=== PATIENT | male | born 1990 | race African-American/Black ===

== ENCOUNTER 2022-07-27 21:40 | Emergency (ER) | payer OTHER, SELFPAY ==
--- NOTE | ~2022-07-27 | CT_ITS ---
EXAMINATION: CT HEAD WITHOUT CONTRAST CLINICAL INFORMATION: New onset seizure. COMPARISON: None available. TECHNIQUE: Contiguous axial imaging was performed from the skull base to vertex without intravenous administration of contrast. This CT examination was performed using dose optimization techniques as appropriate, variously including the following: *Automated exposure control. *Adjustment of mA and/or kV according to patient size (this includes techniques or standardized protocols for targeted exams where dose is matched to indication/reason for exam; i.e. extremities or head). *Use of iterative reconstruction technique. DLP: 672 mGy-cm FINDINGS: There is no evidence of acute intracranial hemorrhage or edematous territorial infarction. Duval-white matter differentiation is preserved. There is no abnormal attenuation within the brain parenchyma. The ventricles are normal in morphology and size. No evidence for obstructive hydrocephalus. Normal positioning of the cerebellar tonsils. The suprasellar cistern remains widely patent. No abnormal mass effect or midline shift. No extra-axial fluid collections. No acute soft tissue or osseous abnormalities. The mastoid air cells and visualized paranasal sinuses are clear. CT/CT head/brain wo IV con IMPRESSION: 1. No evidence of acute intracranial hemorrhage or edematous territorial infarction. 2. No demonstrated abnormal mass effect.
[2022-07-27 21:54] VITALS: BP 110/80; PULSE 63; O2SAT 97
[2022-07-27 22:10] VITALS: BP 108/49; PULSE 61; RESP 16; TEMP 36.7; O2SAT 99
[2022-07-27 22:13] VITALS: BP 112/56; RESP 18; O2SAT 97; BMI 21.2
--- OUTSIDE RECORDS SUMMARY | 2022-07-27 22:13 | XMS_ITS | Continuity of Care Document ---
:1990 Author Organization [facility] Address [address] [place] [address] Drive [address] [place] [address]- Care Team Providers Name Role Phone Not on Staff, PCP Primary Care Physician Unavailable En[place] [facility] [place] 09/12/20 - 09/19/[address] [place] [address]- Attending Physician: Huber Snowden Allergies, Adverse Reactions, Alerts Substance Reaction Severity Status Ritalin Active RisperDAL Active Medications diclofenac 1% topical gel = 4 Gm, Topically, 4 times a day, PRN Pain , Moderate, # 480 Gm, 0 Refills, Maintenance, 09/05/20 8:38:00 EDT, Gel, [facility]/pharmacy #[id number], Partial fill upon patient request if the prescription is for a schedule II opioid drug., 172.72, cm, 09/05/20 8:15:... Start Date: 09/05/20 Status: Orderedibuprofen 600 mg oral tablet 600 mg, 1, tablet, By Mouth, Every 6 hours, PRN, Refills 0, Maintenance, Pain , Mild, 09/01/20 12:25:00 EDT, Partial fill upon patient request if the prescription is for a schedule II opioid drug. Start Date: 09/01/20 Status: Orderedolanzapine 5 mg oral tablet 5 mg, 1, tablet, By Mouth, Daily at bedtime, # 30 tablet, Refills 0, Tot. Refills 0, Maintenance, 09/05/20 8:38:00 EDT, Route to Pharmacy Electronically, [facility]pharmacy #[id number], Partial fill upon patient request if the prescription is for a schedule II op... Start Date: 09/05/20 Status: Orderedondansetron 4 mg oral tablet 1 tablet = 4 mg, By Mouth, Every 8 hours, PRN Nausea, # 12 tablet, 0 Refills, Maintenance, 09/05/20 11:04:00 EDT, [facility]/pharmacy #[id number], Partial fill upon patient request if the prescription is for a schedule II opioid drug., 172.72, cm, 09/05/20 8:15:00... Start Date: 09/05/20 Stop Date: 09/08/20 Status: Orderedpantoprazole 40 mg oral delayed release tablet 1 tablet = 40 mg, By Mouth, Daily, # 30 tablet, 0 Refills, Maintenance, 09/05/20 8:38:00 EDT, EC Tablet, 172.72, cm, 09/05/20 8:15:00 EDT, Height, 58, kg, 09/01/20 17:25:00 EDT, Dry Weight Start Date: 09/05/20 Status: OrderedTylenol 325 mg oral tablet 650 mg, 2, tablet, By Mouth, Every 4 hours, PRN, Refills 0, Maintenance, Pain , Mild, 09/01/20 12:25:00 EDT, Partial fill upon patient request if the prescription is for a schedule II opioid drug. 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
--- OUTSIDE RECORDS SUMMARY | 2022-07-27 22:13 | XMS_ITS | Continuity of Care Document ---
:1990 Author Organization [facility] Address [address] [place] [address] Drive [address] [place] [address]- Care Team Providers Name Role Phone Not on Staff, PCP Primary Care Physician Unavailable Encounter [facility] [place] Date(s): 09/28/20 - 10/28/[address] [place] [address]- Attending Physician: Laure Medellin Admitting Physician: Laure Medellin Referring Physician: Laure Medellin Allergies, Adverse Reactions, Alerts Substance Reaction Severity Status Ritalin Active RisperDAL Active Medications diclofenac 1% topical gel = 4 Gm, Topically, 4 times a day, PRN Pain , Moderate, # 480 Gm, 0 Refills, Maintenance, 09/05/20 8:38:00 EDT, Gel, [facility]/pharmacy #[id number], Partial fill upon patient request if the [...] 09/05/20 8:38:00 EDT, Route to Pharmacy Electronically, [facility]/pharmacy #[id number], Partial fill upon patient request if the prescription is for a schedule II op... Start Date: 09/05/20 Status: Orderedondansetron 4 mg oral tablet 1 tablet = 4 mg, By Mouth, Every 8 hours, PRN Nausea, # 12 tablet, 0 Refills, Maintenance, 09/05/20 11:04:00 EDT, [facility]/pharmacy #[id number], Partial fill upon patient request if [...]
--- OUTSIDE RECORDS SUMMARY | 2022-07-27 22:13 | XMS_ITS | Continuity of Care Document ---
:1990 Author Organization [facility] Address [address] [place] [address]- Care Team Providers Name Role Phone Not on Staff, PCP Primary Care Physician Unavailable [place] [facility] [place]/22/20 - 09/01/[address] [address] Discharge Disposition: Transfer to [facility] Facility Attending Physician: Mustapha Vinson MD Admitting Physician: Mustapha Vinson MD Referring Physician: Not on Staff, Referring MD Allergies, Adverse Reactions, Alerts Substance Reaction Severity Status Ritalin Active RisperDAL Active Medications calcium carbonate 500 mg (200 mg elemental calcium) oral tablet, chewable 1,000 mg, 2, tablet, Chew, 3 times a day, PRN, Refills 0, Maintenance, Dyspepsia, 09/01/20 13:26:00 EDT, Partial fill upon patient request if the prescription is for a schedule II opioid drug. Start Date: 09/01/20 Status: OrderedColace sodium 100 mg oral capsule 200 mg, 2, capsule, By Mouth, 2 times a day, Refills 0, Maintenance, 09/01/20 12:26:00 EDT, Partial fill upon patient request if the prescription is for a schedule II opioid drug. Start Date: 09/01/20 Status: Orderedibuprofen 600 mg oral tablet 600 mg, 1, tablet, By Mouth, Every 6 hours, PRN, Refills 0, Maintenance, Pain , Mild, 09/01/20 12:25:00 EDT, Partial fill upon patient request if the prescription is for a schedule II opioid drug. Start Date: 09/01/20 Status: Orderedlidocaine 5% topical film Topically, Daily, 0 Refills, Maintenance, 09/01/20 13:26:00 EDT, Patch, Partial fill upon patient request if the prescription is for a schedule II opioid drug. Start Date: 09/01/20 Status: OrderedMiraLax Powder 1 pack/packet = 17 Gm, By Mouth, Daily, 0 Refills, Maintenance, 09/01/20 13:26:00 EDT, Powder, Partial fill upon patient request if the prescription is for a schedule II opioid drug. Start Date: 09/01/20 Status: Orderedolanzapine 5 mg oral tablet 5 mg, 1, tablet, By Mouth, Daily at bedtime, Refills 0, Maintenance, 09/01/20 11:04:00 EDT, Partial fill upon patient request if the prescription is for a schedule II opioid drug. Start Date: 09/01/20 Status: OrderedoxyCODONE 5 mg oral tablet 5 mg, Tablet, By Mouth, Every 4 hours, PRN for Pain , Moderate, Routine, 08/29/20 8:30:00 EDT Start Date: 08/29/20 Stop Date: 09/02/20 Status: DiscontinuedoxyCODONE 5 mg oral tablet 5 mg, 1, tablet, By Mouth, Every 4 hours, PRN, Refills 0, Tot. Refills 0, Maintenance, Pain , Moderate, 09/01/20 13:26:00 EDT, Partial fill upon patient request if the prescription is for a schedule IIopioid drug. Start Date: 09/01/20 Status: Orderedpantoprazole 40 mg oral delayed release tablet = 40 mg, By Mouth, Daily, 0 Refills, Maintenance, 09/01/20 11:04:00 EDT, EC Tablet Start Date: 09/01/20 Status: OrderedRemove Patch Start Date: 09/01/20 Status: OrderedSenna 8.6 mg oral tablet 8.6 mg, 1, tablet, By Mouth, Daily, Refills 0, Maintenance, 09/01/20 12:26:00 EDT, Tablet, Partial fill upon patient request if the prescription is for a schedule II opioid drug. Start Date: 09/01/20 Status: OrderedTylenol 325 mg oral tablet 650 mg, 2, tablet, By Mouth, Every 4 hours, PRN, Refills 0, Maintenance, Pain , Mild, 09/01/20 12:25:00 EDT, Partial fill upon patient request if the prescription is for a schedule II opioid drug. 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 Comparison films are from August 27, 2020. HISTORY: Postop study. FINDINGS: The cardiac silhouette is within normal limits for size. Patient is status post median sternotomy. No airspace infiltrate or pleural effusion is identified. A very tiny left apical pneumothorax is improved. Minimal degenerative changes are noted in the spine. IMPRESSION: Improved tiny left apical pneumothorax. Examination 96135. Thank you for allowing me to participate in the care of this patient. WSN: [id number] Ordering Physician: Jojo Vance Dictated By: Reilly Doyle MD Dictated Date/Time: 08/28/20 8:51 am Reviewed By: Reilly Doyle MD Signed By: Reilly Doyle MD Signed Date/Time: 08/28/20 8:51 am Transcribed By: MIKE Transcribed Date/Time: 08/28/20 8:49 am Exam Date Time Procedure Performing Provider Status 08/27/20 7:23 AM Chest 2 Views Frontal and Lat Krystle Cardona; Auth (Verified) Notes:(Chest 2 Views Frontal and Lat) Reason For Exam: PostopRESULT: Chest 2 Views Frontal and Lat Chest 2 Views Frontal and Lat Reason: Postop; Clinical Question(s): Follow-Up Abnormal Exam COMPARISON: 08/26/2020 FINDINGS: Stable small left apical pneumothorax. Small left pleural effusion is stable IMPRESSION: Stable small left apical pneumothorax. Stable small left pleural effusion WSN: [id number] Ordering Physician: Jojo Vance Dictated By: Jin Amato MD Dictated Date/Time: 08/27/20 9:27 am Reviewed By: Jin Amato MD Signed By: Jin Amato MD Signed Date/Time: 08/27/20 9:27 am Transcribed By: MIKE Transcribed Date/Time: 08/27/20 9:25 am Exam Date Time Procedure Performing Provider Status 08/26/20 4:21 PM Chest 2 Views Frontal and Lat Keshav Francisco; Negin vital (Verified) Notes:(Chest 2 Views Frontal and Lat) Reason For Exam: post CT pull; Please get chest xray done at 1600;Other:RESULT: Chest 2 Views Frontal and Lat PA and lateral chest dated August 26, 2020. Comparison films are from earlier in the day. HISTORY: Status post left chest tube removal. FINDINGS: The cardiac silhouette is within normal limits for size. There is a small left apical pneumothorax measuring up to 7 mm. There is no evidence of tension. No airspace infiltrate is noted. There is a small left pleural effusion.. There is a small crescentic focus of air under the right hemidiap hragm. This could represent a minimal amount of free intraperitoneal air. Patient had abdominal surgery on August 22, 2020. IMPRESSION: Small left apical pneumothorax following chest tube removal. No evidence of tension. Minimal amount of free intraperitoneal air. Examination 43745. Thank you for allowing me to participate in the care of this patient. WSN: [id number] Ordering Physician: Huber Cabrera Dictated By: Reilly Doyle MD Dictated Date/Time: 08/26/20 5:18 pm Reviewed By: Reilly Doyle MD Signed By: Reilly Doyle MD Signed Date/Time: 08/26/20 5:18 pm Transcribed By: MIKE Transcribed Date/Time: 08/26/20 5:15 pm Exam Date Time Procedure Performing Provider Status 08/26/20 7:31 AM Chest 2 Views Frontal and Lat Aaron Tan (Verified) Notes:(Chest 2 Views Frontal and Lat) Reason For Exam: Tube PlacementRESULT: Chest 2 Views Frontal and Lat Chest 2 Views Frontal and Lat Reason: Tube Placement; Clinical Question(s): Tube Placement COMPARISON: 08/25/2020 FINDINGS: Trace amount of right subdiaphragmatic gas has decreased slightly. Left thoracostomy tube is stable. No evidence of pneumothorax. Mild left basilar groundglass consistent with small left pleural effusion. IMPRESSION: Stable left thoracostomy tube. No evidence of pneumothorax. Small, stable left pleural effusion. Right subdiaphragmatic gas has decreased slightly. WSN: [id number] Ordering Physician: Sandy Villegas Dictated By: Jin Amato MD Dictated Date/Time: 08/26/20 4:14 pm Reviewed By: Jin Amato MD Signed By: Jin Amato MD Signed Date/Time: 08/26/20 4:14 pm Transcribed By: MIKE Transcribed Date/Time: 08/26/20 4:12 pm Exam Date Time Procedure Performing Provider Status 08/25/20 6:05 AM Chest 2 Views Frontal and Lat Robert , Lyudmila; Au th (Verified) Notes:(Chest 2 Views Frontal and Lat) Reason For Exam: Tube PlacementRESULT: Chest 2 Views Frontal and Lat Chest 2 Views Frontal and Lat Reason: Tube Placement; Clinical Question(s): Tube Placement COMPARISON: Multiple recent prior examinations most recently 08/24/2020. FINDINGS: LINES AND TUBES: Left-sided chest tube remains in place. LUNGS AND PLEURA: Clear lungs. Normal pulmonary vascularity. Trace left effusion. No pneumothorax. HEART, MEDIASTINUM AND STACIE: Heart is normal in size. Normal upper mediastinal and hilar contour. BONES AND SOFT TISSUES: Trace amount of air under the right hemidiaphragm is a new finding. Multiple intra-abdominal air-filled bowel loops are increasing in number. Postsurgical changes again noted. IMPRESSION: Trace amount of air under the right hemidiaphragm, clinical correlation for pneumoperitoneum. This could also be within a bowel loop interposed between the liver and anterior abdominal wall, however sheila new finding compared to previous exams. A Lolita message has been communicated via the [facility] system on 08/25/2020 11:10 AM, Message ID [id number]. WSN: [id number] Ordering Physician: Radames Francois Dictated By: Naun Jose MD Dictated Date/Time: 08/25/20 11:10 a Reviewed By: Naun Jose MD Signed By: Naun Jose MD Signed Date/Time: 08/25/20 11:10 am Transcribed By: MIKE Transcribed Date/Time: 08/25/20 11:02 am Exam Date Time Procedure Performing Provider Status 08/24/20 12:36 PM Chest Portable Dana Lopez (Verif ied) Notes:(Chest Portable) Reason For Exam: S/p mediastinal tube removal;Tube PlacementRESULT: Chest Portable Chest Portable INDICATION: Status post mediastinal drain removal. COMPARISON: 08/24/2020 at 5:56 AM. FINDINGS: LINES AND TUBES: Unchanged apically directed left thoracostomy tube. Mediastinal drain has been removed. LUNGS AND PLEURA: Clear lungs. Normal pulmonary vascularity. No pleural effusion. No pneumothorax. HEART, MEDIASTINUM AND STACIE: Heart is normal in size. Unchanged trace pneumomediastinum. BONES AND SOFT TISSUES: Status post median sternotomy, wires intact. IMPRESSION: Status post mediastinal drain removal, otherwise no significant change. I have personally reviewed the images and I agree with this report. WSN: [id number] Ordering Physician: Kingsley Irving Dictated By: Yash[Radiology] Connie GUEVARA Dictated Date/Time: 08/24/20 4:10 pm Reviewed By: Jeramie Askew MD Signed By: Jeramie Askew MD Signed Date/Time: 08/24/20 4:15 pm Transcribed By: MIKE Transcribed Date/Time: 08/24/20 2:10 pm Exam Date Time Procedure Performing Provider Status 08/24/20 6:31 AM Chest Portable Delaney Rubin (Verified) Notes:(Chest Portable) Reason For Exam: Tube PlacementRESULT: Chest Portable AP semiupright portable chest dated August 24, 2020 at 0556 hours. Comparison films are from AugustAugust 22, 2020. HISTORY: Follow-up pneumothorax. FINDINGS: The cardiac silhouette is within normal limits for size. Since the previous study, an endotracheal tube and nasogastric tube have been removed. 2 chest tubes remain in place on the left, unchanged. No pneumothorax is seen. No airspace infiltrate or pleural effusion is identified. Patient is status post median sternotomy. IMPRESSION: Status post removal of endotracheal tube and nasogastric tube. No evidence of acute pulmonary disease. Examination [id number]. Thank you for allowing me to participate in the care of this patient. WSN: [id number] Ordering Physician: Zeyad Garcias Dictated By: Reilly Doyle MD Dictated Date/Time: 08/24/20 10:52 a Reviewed By: Reilly Doyle MD Signed By: Reilly Doyle MD Signed Date/Time: 08/24/20 10:52 am Transcribed By: MIKE Transcribed Date/Time: 08/24/20 10:51 am Exam Date Time Procedure Performing Provider Status 08/23/20 6:23 AM Chest Portable Stella Vaughan; Torrie (Verified) Notes:(Chest Portable) Reason For Exam: chest tubes, ett;Tube PlacementRESULT: Chest Portable Chest Portable Reason: Tube Placement COMPARISON: 08/22/2020 FINDINGS: LINES AND TUBES: Endotracheal tube tip terminating in 8.8 cm above the jojo. Enteric tube terminating outside of the field of view but overlying the left upper quadrant. Unchanged mediastinal and left apical chest tube in place LUNGS AND PLEURA: Clear lungs. Normal pulmonary vascularity. No pleural effusion. No pneumothorax. HEART, MEDIASTINUM AND STACIE: Heart is normal in size. Normal upper mediastinal and hilar contour. BONES AND SOFT TISSUES: No acute abnormality. IMPRESSION: 1. Support lines in place as detailed above. 2. No acute cardiopulmonary abnormality. I have personally reviewed the images and I agree with this report. WSN: [id number] Ordering Physician: Zeyad Garcias Dictated By: Teo Owens DO Dictated Date/Time: 08/23/20 11:55 a Reviewed By: Astrid Mcgregor MD, V Signed By: Astrid Mcgregor MD, V Signed Date/Time: 08/23/20 12:00 pm Transcribed By: MIKE Transcribed Date/Time: 08/23/20 10:56 am Exam Date Time Procedure Performing Provider Status 08/22/20 7:42 PM Chest Portable Madonna Marks; Torrie (Verifie d) Notes:(Chest Portable) Reason For Exam: Other:RESULT: Chest Portable Chest Portable Reason: Other:; Special Instructions: Questioning bleeding COMPARISON: 08/22/2020 FINDINGS: LINES AND TUBES: Endotracheal tube remains in a high position, terminating approximately 8.2 cm above the jojo above the thoracic inlet. Nasogastric tube terminates in the stomach. A mediastinal and left apical chest tube are present. LUNGS AND PLEURA: There are low lung volumes. No pleural effusion. No pneumothorax. HEART, MEDIASTINUM AND STACIE: Heart is normal in size. Normal upper mediastinal and hilar contour. BONES AND SOFT TISSUES: No acute abnormality. IMPRESSION: Endotracheal tube terminates above the thoracic inlet. The tube could be advanced by 4 cm to terminate in the mid trachea. Decreased lung volumes. No evidence for hemothorax or mediastinal hematoma. WSN: [id number] Ordering Physician: Hiwot Owen Dictated By: Cate Sparks MD Dictated Date/Time: 08/22/20 7:45 pm Reviewed By: Cate Sparks MD Signed By: Cate Sparsk MD Signed Date/Time: 08/22/20 7:45 pm Transcribed By: MIKE Transcribed Date/Time: 08/22/20 7:43 pm Exam Date Time Procedure Performing Provider Status 08/22/20 5:58 PM Chest Portable Anay Corbett; Torrie (Verified ) Notes:(Chest Portable) Reason For Exam: Tube PlacementRESULT: Chest Portable Chest Portable Reason: Tube Placement COMPARISON: 08/22/2020 4:15 PM FINDINGS: LINES AND TUBES: Endotracheal tube terminates in the upper trachea, above the thoracic inlet, 8.2 cm above jojo. A left-sided chest tube is present, as well as a mediastinal chest tube. Nasogastric tube terminates inthe stomach. LUNGS AND PLEURA: Clear lungs. Normal pulmonary vascularity. No pleural effusion. No pneumothorax. HEART, MEDIASTINUM AND STACIE: Heart is normal in size. Pneumomediastinum is present. BONES AND SOFT TISSUES: No acute abnormality. IMPRESSION: Endotracheal tube terminates above the thoracic inlet, 8.2 cm above jojo. Recommend advancing by 4-5 cm A Lolita message has been communicated via the [facility] system on 08/22/2020 6:01 PM, Message ID [id number]. WSN: [id number] Ordering Physician: Alejo Hernández Dictated By: Cate Sparks MD Dictated Date/Time: 08/22/20 6:01 pm Reviewed By: Cate Sparks MD Signed By: Cate Sparks MD Signed Date/Time: 08/22/20 6:01 pm Transcribed By: MIKE Transcribed Date/Time: 08/22/20 5:59 pm Vital Signs Most recent to oldest 1 2 3 4 [Reference Range]: Height 175 cm 175 cm 175 cm (09/01/20 2:16 PM) (09/01/20 12:26 PM) (09/01/20 12:25 PM ) Weight 64.0 kg 62.9 kg 62.9 kg (08/25/20 2:22 PM) (08/22/20 5:00 PM) (08/22/20 5:00 PM) Oxygen Saturation 100 % 100 % 100 % [94-100 %] (09/01/20:26 PM) (09/01/20 12:25 PM) (09/01/20 6:56 AM ) Pulse Rate [55-90 bpm] 81 bpm 71 bpm 57 bpm (09/01/20:16 PM) (09/01/20: PM) (09/01/20 12: PM ) Body Mass Index 20.54 [18.5-24.99] (08/22/20 5:00 PM) Blood Pressure 111/64 mm Hg 98/56 mm Hg 100/60 mm Hg [90-138/55-84 mm Hg] (09/01/20 2:16 PM) (09/01/20 12:26 PM) (09/01/20 12:25 PM) Respiratory Rate [16-30 18 br/min 18 br/min 18 br/min 18 b r/min br/min] (09/01/20 2:14 PM) (09/01/20 12:25 PM) (09/01/20 8:35 AM) (09/01/20 8:35 AM) Temperature [96.8-100.4 98.3 DegF 98.2 DegF 98.8 DegF DegF] (09/01/20 6:56 AM) (09/01/20 2:35 AM) (08/31/20 6:55 PM) Liters per Minute 2 L/min 4 L/min (08/23/20 2:00 PM) (08/23/20 11:00 AM) Mode of Delivery Room air Room air Room air (Oxygen) (09/01/20 12:26 PM) (09/01/20 12:25 PM) (09/01/20 6:56 AM ) Blood pressure sites Arm, left Arm, left Arm, left (09/01/20 2:16 PM) (09/01/20 12:26 PM) (09/01/20 12:25 PM ) Temperature Route Oral Oral Oral (09/01/20 6:56 AM) (09/01/20 2:35 AM) (08/31/20 6:55 PM) Dry Weight 62.9 kg (08/22/20 5:00 PM) Weight Obtained Via Bed scale Bed scale (08/22/20 5:00 PM) (08/22/20 5:00 PM) Dry Weight Obtained Via Bed scale (08/22/20 5:00 PM)
--- OUTSIDE RECORDS SUMMARY | 2022-07-27 22:13 | XMS_ITS | Continuity of Care Document ---
:1990 Author Organization [facility] Address [address] [place] [address] Drive [address] [place] [address]- Care Team Providers Name Role Phone Not on Staff, PCP Primary Care Physician Unavailable Encounter [facility] [place] Date(s): 09/12/20 - 10/28/[address] [place] [address]- Attending Physician: Jin Beal Allergies, Adverse Reactions, Alerts Substance Reaction Severity Status Ritalin Active RisperDAL Active Medications diclofenac 1% topical gel = 4 Gm, Topically, 4 times a day, PRN Pain , Moderate, # 480 Gm, 0 Refills, Maintenance, 09/05/20 8:38:00 EDT, Gel, [facility]/pharmacy #[id number], Partial fill upon patient request if [...] 09/05/20 8:38:00 EDT, Route to Pharmacy Electronically, [facility]/pharmacy #[id number], Partial fill upon patient request if the prescription is for a schedule II op... Start Date: 09/05/20 Status: Orderedondansetron 4 mg oral tablet 1 tablet = 4 mg, By Mouth, Every 8 hours, PRN Nausea, # 12 tablet, 0 Refills, Maintenance, 09/05/20 11:04:00 EDT, [facility]/pharmacy #[id number], Partial fill upon patient request if [...]
[2022-07-27 22:48] LABS: Glucose, Whole Blood 92 mg/dL (60-115)
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
[2022-07-27 23:41] LABS: MANUAL DIFF FLAG NO
[2022-07-27 23:42] LABS: Basophils Absolute Auto 0.1 X10*3/uL (0.0-0.2); Eosinophils Absolute Auto 0.2 X10*3/uL (0.0-0.4); Eosinophils Percent Auto 2.7 % (0-4); Hematocrit 40.4 % (42.0-52.0); Hemoglobin 13.4 g/dl (14.0-18.0); Imm Gran Abs Auto 0.02 X10*3/uL (0.00-0.03); Imm Gran Pct Auto 0.3 % (0.0-0.4); Lymphocytes Absolute Auto 3.3 X10*3/uL (1.2-4.9); Lymphocytes Percent Auto 47.7 % (20-40); Mean Corpuscular HGB Conc 33.2 g/dl (31.0-36.0); Mean Corpuscular Hemoglobin 30.7 pg (27.0-33.0); Mean Corpuscular Volume 92.7 fL (80.0-98.0); Mean Platelet Volume 10.5 fL (9.4-12.4); Monocytes Absolute Auto 0.6 X10*3/uL (0.1-1.2); Monocytes Percent Auto 8.4 % (2-11); Neutrophils Absolute Auto 2.8 x10*3/uL (2.0-8.3); Neutrophils Percent Auto 39.9 % (45-73); Platelet Count 193 X10*3/uL (160-400); Red Blood Count 4.36 X10*6/uL (4.60-5.80); Red Cell Distribution Width 13.3 % (11.0-16.0)
[2022-07-27 23:55] VITALS: BP 124/64; PULSE 61; RESP 16; TEMP 36.9; O2SAT 98
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
[2022-07-27 23:58] LABS: Alanine Aminotransferase 16 U/L (0-40); Albumin Level 3.7 g/dL (3.5-5.0); Alkaline Phosphatase 71 U/L (39-117); Anion Gap 11 (12-20); Aspartate Amino Transferase 19 U/L (5-37); Bilirubin Total 0.2 mg/dL (0.0-1.0); Blood Urea Nitrogen 15 mg/dL (9-16); Calcium 8.6 mg/dL (8.4-10.2); Carbon Dioxide 26 mmol/L (22-29); Chloride 108 mmol/L (96-108); Creatinine Clr Calc Pharmacy 114.7; Estimated Glomerular Filt Rate > 60; Glucose Random 87 mg/dL (60-115); Potassium 4.3 mmol/L (3.3-5.1); Sodium 141 mmol/L (135-145); Total Protein 5.8 g/dL (6.5-8.0)
--- NOTE | 2022-07-28 00:52 | PC.NURSE ---
Called Maru Kumar x2 at phone goes straight to voice message after three rings RN unable to give nurse to nurse report at this time.
--- NOTE | 2022-07-28 01:19 | PC.NURSE ---
Pt declined nausea med
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
--- NOTE | 2022-07-28 02:24 | PC.NURSE ---
difficulty contacting [facility], they did call back and report was given to Chelly by Yuli bunch.
== END 2022-07-28 01:55 ==
PROVIDERS: Emergency Provider Internal Medicine
DX: R56.9 Unspecified convulsions (principal); R11.2 Nausea with vomiting, unspecified; F19.10 Other psychoactive substance abuse, uncomplicated
CPT/HCPCS: 36415; 70450; 80053; 82947; 85025; 99284; 99285

== ENCOUNTER 2022-10-30 20:57 | Emergency (ER) | payer MEDICAID, SELFPAY ==
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
--- NOTE | ~2022-10-30 | XR_ITS ---
EXAMINATION: XR HAND, RIGHT CLINICAL INFORMATION: Thank you deformity COMPARISON: None available. TECHNIQUE: PA, lateral, and oblique views of the right hand. FINDINGS: There is no visible acute fracture, dislocation or subluxation. The joint spaces are maintained normal. The soft tissues are normal. XR/XR hand RT min 3V IMPRESSION: Unremarkable right hand exam.
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
[2022-10-30 21:02] VITALS: BMI 20.3
[2022-10-30 21:10] VITALS: BP 119/70; PULSE 80; RESP 20; TEMP 36.8; O2SAT 98; BMI 19.2
--- NOTE | 2022-10-30 21:19 | PC.NURSE ---
pt is non compliant with mental health meds. drug use mom thinks it is cocaine. per mom approx 2 weeks ago had fentanyl. in his system.
--- NOTE | 2022-10-30 21:37 | PC.NURSE ---
pt has a blank stare and is wandering in the ed trying to go home. pt appears to be under the influence of pcp. dr ye at bedside
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
[2022-10-30] MEDS: OLANZapine ODT 10 MG TAB.RAPDIS TRANSLINGU (21:41)
[2022-10-30 23:03] VITALS: BP 108/61; PULSE 64; RESP 17; TEMP 36.6; O2SAT 97
--- NOTE | 2022-10-30 23:17 | MHC.EDTECH ---
Patient vitals are stable ED Rounds are done Unable to provide a urine sample will continue to monitor
[2022-10-31 06:11] VITALS: BP 132/74; PULSE 79; RESP 16; O2SAT 98
--- NOTE | 2022-10-31 07:15 | PC.NURSE ---
assumed care of this pt at 0700. pt sleeping on stretcher in no apparent distress. rr even/unlabored. wctm
[2022-10-31 09:03] LABS: MANUAL DIFF FLAG NO
[2022-10-31 09:13] LABS: Basophils Percent Auto 0.6 % (0-2); Eosinophils Absolute Auto 0.1 X10*3/uL (0.0-0.4); Eosinophils Percent Auto 1.5 % (0-4); Hematocrit 42.9 % (42.0-52.0); Hemoglobin 14.1 g/dl (14.0-18.0); Imm Gran Abs Auto 0.02 X10*3/uL (0.00-0.03); Imm Gran Pct Auto 0.3 % (0.0-0.4); Lymphocytes Absolute Auto 2.4 X10*3/uL (1.2-4.9); Lymphocytes Percent Auto 32.6 % (20-40); Mean Corpuscular HGB Conc 32.9 g/dl (31.0-36.0); Mean Corpuscular Hemoglobin 30.1 pg (27.0-33.0); Mean Corpuscular Volume 91.7 fL (80.0-98.0); Mean Platelet Volume 10.8 fL (9.4-12.4); Monocytes Absolute Auto 0.6 X10*3/uL (0.1-1.2); Monocytes Percent Auto 8.5 % (2-11); Neutrophils Absolute Auto 4.1 x10*3/uL (2.0-8.3); Neutrophils Percent Auto 56.5 % (45-73); Platelet Count 232 X10*3/uL (160-400); Red Blood Count 4.68 X10*6/uL (4.60-5.80); Red Cell Distribution Width 14.9 % (11.0-16.0); White Blood Count 7.3 X10*3/uL (4.8-10.8)
[2022-10-31 09:26] LABS: COVID-19 Test Negative (Negative); IDNOW Serial# BCCEAD1C
[2022-10-31 09:33] LABS: Alanine Aminotransferase 13 U/L (0-40); Albumin Level 3.8 g/dL (3.5-5.0); Alkaline Phosphatase 66 U/L (39-117); Anion Gap 10 (12-20); Aspartate Amino Transferase 21 U/L (5-37); Bilirubin Direct 0.2 mg/dL (0.0-0.5); Bilirubin Total 0.9 mg/dL (0.0-1.0); Blood Urea Nitrogen 12 mg/dL (9-16); Calcium 9.2 mg/dL (8.4-10.2); Carbon Dioxide 27 mmol/L (22-29); Chloride 108 mmol/L (96-108); Creatinine Clr Calc Pharmacy 103.3; Estimated Glomerular Filt Rate > 60; Ethanol < 10 mg/dL; Glucose Random 87 mg/dL (60-115); Magnesium 1.9 mg/dL (1.6-2.6); Potassium 4.1 mmol/L (3.3-5.1); Sodium 141 mmol/L (135-145); Total Protein 6.4 g/dL (6.5-8.0)
--- NOTE | 2022-10-31 12:28 | PC.NURSE ---
pt woke up briefly. ED techs were able to draw labs off pt. awaiting urine sample. pt sleeping/lethargic. tried to wake pt up and was drowsy/fell back asleep mid sentence. pt sts wondering why he is still here and 5/10 pain in his face. currently sleeping. rr even/unlabored. wctm
[2022-10-31 14:47] LABS: Amphetamine Screen Urine Not Detected (Not Detect); Barbiturates, Urine Not Detected (Not Detect); Benzodiazepines Screen Urine Not Detected (Not Detect); Cannabinoid Screen Urine POSITIVE (Not Detect); Cocaine Screen Urine POSITIVE (Not Detect); Fentanyl, urine POSITIVE (Not Detect); Opiate Screen Urine Not Detected (Not Detect); Phencyclidine Screen Urine Not Detected (Not Detect)
--- NOTE | 2022-10-31 14:50 | PC.NURSE ---
pt woke up, asking for food. given saltines and gingerale. given portable phone for phone calls. this RN, called care team to let them know [facility]H is finally awake and can be evaluated miguel. was told that utox needs to be done first. urine collected, awaiting results
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
--- NOTE | 2022-10-31 16:15 | PC.NURSE ---
care team at bedside. pt sleeping and hard to arouse/keep awake. this rn helped Khushbu pull answers out of pt. pt was mumbling and giving head nods as answers. care team left bedside and pt became agitated because care team had other pt's to see and couldn't spend their whole time trying to guess what the pt was saying since he could not keep eyes open or stay awake during evaluation. pt started yelling in the ER that he hasn't received any food or pain medicine since he's been here. pt was given multiple sandwiches, crackers, juices, and gingerales. pt was then sleeping if not eating, showing no signs of pain or distress. security tried to deescalate pt. pt yelling profanities, upsetting other pts. pt eloped. no indication of section.
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
== END 2022-11-01 16:33 | disposition left against medical advice (07) ==
PROVIDERS: Physician Assistant; Emergency Provider Internal Medicine
DX: S02.2XXA Fracture of nasal bones, initial encounter for closed fracture (principal); S01.511A Laceration without foreign body of lip, initial encounter; Y04.2XXA Assault by strike against or bumped into by another person, initial encounter; F20.9 Schizophrenia, unspecified; F41.9 Anxiety disorder, unspecified; F19.10 Other psychoactive substance abuse, uncomplicated; Y93.01 Activity, walking, marching and hiking; Y92.414 Local residential or business street as the place of occurrence of the external cause; Y99.9 Unspecified external cause status; Z79.899 Other long term (current) drug therapy
CPT/HCPCS: 70450; 70486; 73130; 80048; 80076; 80307; 83735; 85025; 87635; 99284

== ENCOUNTER 2022-10-31 16:52 | Emergency (ER) | payer MEDICAID, SELFPAY ==
[2022-10-31 17:00] VITALS: BP 133/67; PULSE 78; RESP 18; TEMP 36.8; O2SAT 97; BMI 21.3
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
== END 2022-10-31 18:07 | disposition left against medical advice (07) ==
PROVIDERS: Emergency Provider Emergency Medicine
DX: F19.10 Other psychoactive substance abuse, uncomplicated (principal); F20.9 Schizophrenia, unspecified; Z79.899 Other long term (current) drug therapy
CPT/HCPCS: 99282; 99283

== ENCOUNTER 2023-01-10 08:30 | Emergency (ER) | payer MEDICAID, SELFPAY ==
--- NOTE | ~2023-01-10 | XR_ITS ---
EXAMINATION: XR HAND, LEFT CLINICAL INFORMATION: Acute pain in left hand COMPARISON: None available. TECHNIQUE: PA, lateral, and oblique views of the left hand. FINDINGS: The bones and soft tissues are normal. No fracture. Alignment is anatomic. Joint spaces are maintained. No erosions or soft tissue calcifications. XR/XR hand LT min 3V IMPRESSION: Normal left hand.
[2023-01-10 08:41] VITALS: BP 116/65; PULSE 73; RESP 16; TEMP 36.8; O2SAT 96; BMI 24.8
--- NOTE | 2023-01-10 08:51 | ECG_ITS ---
Test Reason : chest pain Blood Pressure : / mmHG Vent. Rate : 069 BPM Atrial Rate : 069 BPM P-R Int : 182 ms QRS Dur : 084 ms QT Int : 360 ms P-R-T Axes : 041 037 017 degrees QTc Int : 385 ms Normal sinus rhythm Normal ECG No previous ECGs available Referred By: Devin Box Electronically Signed By:RUBEN CHUN
[2023-01-10 08:55] VITALS: BP 116/65; PULSE 73; RESP 16; TEMP 36.8; O2SAT 96
[2023-01-10] MEDS: Ondansetron ODT 4 MG TAB.RAPDIS TRANSLINGU (09:02)
[2023-01-10] MEDS: Acetaminophen 325 MG TABLET 975 MG PO (09:02)
--- NOTE | 2023-01-10 09:04 | PC.NURSE ---
medication administered per provider order. pt requesting higher dose of hydroxyzine d/t him verbalizing that he takes 75mg of hydroxyzine PRN at home and doesn't think that 25mg will help/ will notify provider. tech bedside performing EKG.
[2023-01-10] MEDS: hydrOXYzine HCL 25 MG TABLET PO (09:12)
[2023-01-10] MEDS: hydrOXYzine HCL 50 MG TABLET PO (09:12)
--- NOTE | 2023-01-10 09:13 | PC.NURSE ---
pt requested higher dose of hydroxyzine. provider notified. provider instructed for me to increase dose as a verbal order. 50mg of hydroxyzine added to the 25mg to equal 75mg. 75mg of hydroxyzine administered to pt. lights dimmed. call stringer placed within reach.
--- NOTE | 2023-01-10 09:34 | ED.GENADULT ---
HPI - General Adult General Chief complaint: Anxiety Stated complaint: hand fracture ? vomiting Time Seen by Provider: 01/10/23 08:39 Source: patient Mode of arrival: ambulatory Limitations: no limitations History of Present Illness HPI narrative: 32-year-old male presents with left hand pain, anxiety, chest pain. Symptoms started yesterday when he had his hand crushed at work moving something. Patient has moderate pain. Worse with palpation and movement. The pain radiates distally to his left ulnar finger area. He has no numbness or tingling. Additionally, patient feels like he is having a panic attack. Symptoms include chest pain and palpitations. This is similar to his previous panic attacks. There is no pre treatment. Patient describes his anxiety as severe. There is no clear relieving or exacerbating features. He denies any shortness of breath, nausea vomiting. Related Data Previous Rx's Medication Instructions Recorded ondansetron 4 mg disintegrating 4 mg PO Q8H PRN nausea and 01/10/23 tablet vomiting #10 tabs Allergies Allergy/AdvReac Type Severity Reaction Status Date / Time methylphenidate AdvReac Mild Vomiting Verified 07/27/22 23:17 risperidone AdvReac Mild Unknown Verified 07/27/22 23:17 Review of Systems Review of Systems: CONSTITUTIONAL: Denies weight loss, fever and chills. HEENT: Denies changes in vision and hearing. RESPIRATORY: Denies SOB and cough. CV: + palpitations no CP. GI: Denies abdominal pain, nausea, vomiting and diarrhea. : Denies dysuria and urinary frequency. MSK: + myalgia and joint pain. SKIN: Denies rash and pruritus. NEUROLOGICAL: Denies headache and syncope. PSYCHIATRIC: + recent changes in mood. + anxiety and depression. All other ROS are negative unless in HPI [facility] Social History Social History Household Members: Significant Other Alcohol intake: never Smoked in Last 30 Days: Yes Use of substances other than those prescribed or required for medical reasons: Yes Substance Use Type: Marijuana Advance Directives: No Physical Exam ED Vital Signs: Vital Signs - 24 hr 01/10/23 08:41 01/10/23 08:55 Temperature 98.2 F 98.2 F Pulse Rate 73 73 Respiratory Rate 16 16 Blood Pressure 116/65 116/65 Pulse Oximetry 96 96 Oxygen Delivery Method Room Air Room Air BMI result Body Mass Index 24.8 GEN: Well developed, no acute distress, alert, oriented HEENT: Normocephalic, atraumatic, normal external ears, nose appears normal, no oropharyngeal edema or exudates Eyes: Normal to appearance Neck: Supple, no lymphadenopathy Respiratory: Talks in complete sentences, no respiratory distress, clear to auscultation bilaterally Cardiovascular: Regular rate and rhythm, no murmurs rubs or gallops Abdomen: Soft, nontender, nondistended, no guarding, no rebound Back: No CVA tenderness Extremities: No clubbing cyanosis or edema, soft tissue swelling to the ulnar aspect of left hand, neurovascularly intact Neurologic: No focal neurologic deficits, cranial nerves 2-12 intact, strength is 5/5 bilaterally Skin: No rash Psych: Anxious appearing. Course Course Course Narrative: The workup is complete. There is no evidence of fracture. EKG shows no ischemic changes. Patient's anxiety is better after Vistaril. I will discharge the patient. He will take Tylenol and ibuprofen as needed for pain. I will provide a prescription for Zofran to take as needed. He has hydroxyzine at home as needed for anxiety. Medications Administered Discontinued Medications Generic Name Dose Route Start Last Admin Trade Name Juaquin PRN Reason Stop Dose Admin Acetaminophen 975 mg 01/10/23 08:51 01/10/23 09:02 Acetaminophen 325 Mg Tablet PO 01/10/23 08:52 975 mg ONCE ONE Administration Hydroxyzine HCl 25 mg 01/10/23 08:51 01/10/23 09:12 Hydroxyzine Hcl 25 Mg Tablet PO 01/10/23 08:52 25 mg ONCE ONE Administration Hydroxyzine HCl 50 mg 01/10/23 09:08 01/10/23 09:12 Hydroxyzine Hcl 50 Mg Tablet PO 01/10/23 09:09 50 mg ONCE ONE Administration Ondansetron HCl 4 mg 01/10/23 08:51 01/10/23 09:02 Ondansetron Odt 4 Mg Tab.Rapdis TRANSLINGU 01/10/23 08:52 4 mg ONCE ONE Administration Medical Decision Making Medical Decision Making MDM Narrative: 32-year-old male presents with anxiety, left hand pain. Examination revealed tenderness of the left hand with reported trauma. Will obtain an x-ray to rule out fracture. Other diagnosis could include contusion, sprain, strain. Additionally, patient is complaining of chest pain, palpitations and nausea. This is consistent with his panic attacks. Will provide patient with Vistaril, Zofran, Tylenol. Will re-evaluate the patient. He is not suicidal homicidal. He denies drugs or alcohol use. At this point, he does not clearly warranted care team evaluation but will continue to monitor and address further as needed. Differential diagnosis includes anxiety, panic, depression, PTSD, mood disorder, stress reaction. Differential Diagnosis Differential Diagnoses: The differential diagnosis associated with the presentation includes (See above) Admission/Observation Consideration of admission/observation: Escalation of care including admission/observation considered Independent Interpretation I performed an independent interpretation of an: EKG (Normal sinus rhythm heart rate 69, normal intervals, no acute ST elevations depressions.) Prescription Management I considered prescription management with: Pain Medication Discharge Plan Discharge Clinical Impression: Panic disorder, Acute anxiety, Left hand pain Patient Disposition: Home, Self-Care Instructions: Contusion in Adults (ED), Anxiety (ED) Prescriptions: New ondansetron 4 mg tablet,disintegrating 4 mg PO Q8H PRN (Reason: nausea and vomiting) Qty: 10 0RF Referrals: Physician,Unknown J [Primary Care Provider] - (Follow-up with your primary care provider in 1 week for continued symptoms) Stand Alone Forms: Work/School Release
--- NOTE | 2023-01-10 11:30 | PC.NURSE ---
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
== END 2023-01-10 11:35 | disposition home or self-care (01) ==
PROVIDERS: Emergency Provider Emergency Medicine
DX: F41.0 Panic disorder [episodic paroxysmal anxiety] (principal); F41.9 Anxiety disorder, unspecified; M79.642 Pain in left hand
CPT/HCPCS: 73130; 93005; 99283; 99284; 99285

== ENCOUNTER → 2023-01-10 08:51 | Outpatient (BNV) | payer MEDICAID, SELFPAY | PROVIDERS: Emergency Provider Emergency Medicine; Visit Provider Internal Medicine | DX: R07.9 Chest pain, unspecified (principal) | CPT/HCPCS: 93010 ==

== ENCOUNTER 2023-01-14 10:00 | Outpatient (RCR) | payer OTHER, SELFPAY ==
--- NOTE | 2023-01-10 08:58 | PC.NURSE ---
Cesar called out sick to the program on stating he was having diarrhea. He came to the program this morning c/o having diarrhea and vomiting and not feeling well. He stated he wanted to go to the emergency room. I walked him to the emergency room. He plans on coming to the program on Friday if he is feeling better. [facility] staff are aware.
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
[2023-01-13 13:07] VITALS: BP 96/68; PULSE 64; TEMP 36.5
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
--- NOTE | 2023-01-14 11:22 | PC.NURSE ---
Addendum entered by Aby Cespedes RN 01/14/23 11:29: Cesar was given a copy of his New Patient appointment information at [facility]. Original Note: Cesar decided he wants to leave the program as he stated he has too many things going on as he needs to find new housing by February 21 and find a new job. He is interested in attending [facility] and [facility] and was given information about both. In addition he reports he is too tired to attend the program and was falling asleep in the groups as a result. New PCP appointment with [facility]. [address] [facility]. March 07, 2023 at 8:40 am. [phone]. Bring Insurance card and Picture ID. I asked him if he needed refills on his medications and he stated he is all set as he has a one month supply of his medications. [facility] staff Patricia is setting him up with therapist and prescriber appointments.
[2023-01-14 14:35] LABS: Amphetamine Screen Urine Not Detected (Not Detect); Barbiturates, Urine Not Detected (Not Detect); Benzodiazepines Screen Urine Not Detected (Not Detect); Cannabinoid Screen Urine POSITIVE (Not Detect); Cocaine Screen Urine Not Detected (Not Detect); Fentanyl, urine Not Detected (Not Detect); Opiate Screen Urine Not Detected (Not Detect); Phencyclidine Screen Urine Not Detected (Not Detect)
== END 2023-01-14 23:59 | disposition home or self-care (01) ==
LOC: HO.PHPA 10:00
PROVIDERS: Psychiatry & Neurology Psychiatry; Visit Provider Psychiatry & Neurology Psychiatry
DX: F19.20 Other psychoactive substance dependence, uncomplicated (principal); F41.9 Anxiety disorder, unspecified
CPT/HCPCS: 80307; 90791; 90853

== ENCOUNTER → 2023-01-14 10:00 | Outpatient (BNV) | payer OTHER, SELFPAY | PROVIDERS: Visit Provider Psychiatry & Neurology Psychiatry | DX: F19.10 Other psychoactive substance abuse, uncomplicated (principal); F41.9 Anxiety disorder, unspecified | CPT/HCPCS: 99202 ==